=== PATIENT | male | born 1950 | race Caucasian/White ===

== ENCOUNTER 2017-02-08 13:31 | Outpatient (CLI) | payer MEDICARE, OTHER | END 2017-02-08 13:32 | disposition home or self-care (01) | LOC: DI 13:31 | PROVIDERS: ATTEND Family Medicine | DX: R07.9 Chest pain, unspecified (principal) | CPT/HCPCS: 93306 ==

== ENCOUNTER 2017-08-26 13:27 | Outpatient (CLI) | payer MEDICARE, OTHER ==
--- NOTE | 2017-08-26 14:51 | XRAY Report ---
THREE VIEW BILATERAL KNEES: 08/26/2017 CLINICAL INDICATION: Osteoarthritis. FINDINGS: AP, lateral, sunrise views of the bilateral knees demonstrate moderate bilateral osteoarthritis. A large left effusion is present, and a small right effusion is seen. There is no evidence of acute fracture. IMPRESSION: MODERATE OSTEOARTHRITIS, WITH LEFT GREATER THAN RIGHT EFFUSIONS. TD: 08/26/2017 14:50
== END 2017-08-26 13:28 | disposition home or self-care (01) ==
LOC: DI.N 13:27
PROVIDERS: ATTEND Family Medicine
DX: M17.0 Bilateral primary osteoarthritis of knee (principal)

== ENCOUNTER 2018-06-14 07:09 | Outpatient (CLI) | payer MEDICARE, OTHER ==
--- NOTE | 2018-06-14 11:26 | Ultrasound Report ---
Reason: AAA SCREEN Procedure Date: 06/14/2018 Accession Number: [id number] / [id number] Procedure: US - Aorta Screening CPT Code: FULL RESULT: EXAM: AORTIC DOPPLER ULTRASOUND EXAM DATE: 06/14/2018 07:28 AM. CLINICAL HISTORY: AAA screen. COMPARISON: None. TECHNIQUE: Real-time sonographic imaging of retroperitoneal vascular structures, including color-flow, Doppler flow and spectral analysis was performed by the lead data entry operator. Multiple sales representative education courses static images were saved for review. FINDINGS: Aorta: The abdominal aorta was adequately visualized. While the infrarenal aorta does not meet strict size criteria for aneurysm, it is atherosclerotic, visually demonstrates fusiform ectasia and demonstrates mural thrombus. Aorta: Proximal: Sagittal AP: 2.0 cm. Mid: Transverse: 1.9 x 2.1 cm. Distal: Transverse: 2.6 x 2.8 cm. Caliber WNL: Yes. Plaque visualized: Yes. Iliacs: Right Iliac: Transverse: 1.0 x 1.0 cm. Left Iliac: Transverse: 1.2 x 1.2 cm. Iliac Vessels: The visualized proximal common iliac arteries are normal in caliber. Other: None. IMPRESSION: Ectatic infrarenal abdominal aorta as described. RADIA
== END 2018-06-14 07:10 | disposition home or self-care (01) ==
LOC: DI 07:09
PROVIDERS: ATTEND Internal Medicine
DX: Z13.6 Encounter for screening for cardiovascular disorders (principal); I77.811 Abdominal aortic ectasia
CPT/HCPCS: 76706

== ENCOUNTER 2019-06-20 13:37 | Outpatient (CLI) | payer MEDICARE, OTHER ==
--- NOTE | 2019-06-21 14:28 | XRAY Report ---
Reason: PAIN IN L KNEE Procedure Date: 06/20/2019 Accession Number: [id number] / [id number] Procedure: XR - Knee 3 View LT CPT Code: Final Report FULL RESULT: EXAM: LEFT KNEE RADIOGRAPHY. EXAM DATE: 06/20/2019 02:05 PM. CLINICAL HISTORY: Pain in left knee. COMPARISON: KNEE 3 VIEW BILAT 08/26/2017 1:45 PM. TECHNIQUE: 3 views. FINDINGS: Bones: Normal. No fractures or bone lesions. Joints: Stable mild to moderate medial compartment femorotibial degenerative changes with joint space loss and subchondral sclerosis. Additional mild patellofemoral degenerative changes with osteophytosis. No effusion. No subluxations. Soft Tissues: Normal. No soft tissue swelling. IMPRESSION: Mild to moderate medial compartment femorotibial and patellofemoral degenerative changes. RADIA
== END 2019-06-20 13:38 | disposition home or self-care (01) ==
LOC: DI 13:37
PROVIDERS: ATTEND Family Medicine
DX: M17.12 Unilateral primary osteoarthritis, left knee (principal)

== ENCOUNTER 2019-08-08 07:02 | Outpatient (CLI) | payer MEDICARE, OTHER ==
--- NOTE | 2019-08-08 12:03 | MRI Report ---
Reason: MASS OF LT KNEE JOINT Procedure Date: 08/08/2019 Accession Number: [id number] / [id number] Procedure: MRI - Knee LT W/O CPT Code: Final Report FULL RESULT: EXAM: LEFT KNEE MRI WITHOUT CONTRAST EXAM DATE: 08/08/2019 08:05 AM. CLINICAL HISTORY: Mass of left knee joint. COMPARISON: KNEE 3 VIEW LT 06/20/2019 1:51 PM. TECHNIQUE: Multiplanar, multisequence T1-weighted and fluid-sensitive sequences of the knee without contrast. Other: None. FINDINGS: Bones: Reactive marrow edema posterior aspect medial femoral condyle. Reactive marrow edema medial tibial plateau. Mild spurring anterior aspect medial femoral condyle. Mild spurring medial patellar facet. 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 Medial Meniscus: Complex tear body and posterior horn medial meniscus. Lateral Meniscus: The lateral meniscus is intact. Cruciate Ligaments: The anterior and posterior cruciate ligaments are intact. Collateral Ligaments: The medial collateral and lateral collateral ligamentous structures are intact. Tendons: The quadriceps, patellar, semimembranosus, and popliteus tendons are unremarkable. Musculature: No edema or fatty atrophy. Other: Large joint fluid patellar recesses with diffuse synovitis. Thickening of the medial and superior patellar plica. Multiloculated cyst posterior intercondylar notch 1.9 x 0.7 x 1.9 cm (image 20 series 801). No loose bodies. The medial and lateral retinacula are intact. Edema superior aspect infrapatellar fat pad. Mild superior and inferior prepatellar bursitis. Anterior knee subcutaneous edema. Bejarano's cyst 2.4 x 2.2 cm in transverse dimension and 5 cm in height. IMPRESSION: 1. Severe medial tibiofemoral compartment osteoarthritis. Kellgren Augie grade 3. 2. Severe chondromalacia medial tibiofemoral compartment. 3. Complex tear body and posterior horn medial meniscus. 4. Large patellar recess joint fluid with synovitis. 5. Bejarano's cyst 2.4 x 2.2 cm in transverse dimension and 5 cm in height. 6. Severe chondromalacia medial trochlear groove. RADIA
== END 2019-08-08 07:03 | disposition home or self-care (01) ==
LOC: DI 07:02
PROVIDERS: ATTEND Orthopaedic Surgery Sports Medicine
DX: M17.12 Unilateral primary osteoarthritis, left knee (principal); M94.262 Chondromalacia, left knee; S83.232A Complex tear of medial meniscus, current injury, left knee, initial encounter; M65.9 Synovitis and tenosynovitis, unspecified; M71.22 Synovial cyst of popliteal space [Baker], left knee

== ENCOUNTER 2020-02-14 07:43 | Day surgery (SDC) | payer MEDICARE, OTHER ==
[2020-02-14] MEDS ORDERED: LACTATED RINGERS 1,000 ML IV ONE ×2 (08:15→09:23)
[2020-02-14] MEDS ORDERED: MIDAZOLAM 2 MG/2 ML VIAL IVP ONE (09:02)
[2020-02-14] MEDS ORDERED: fentaNYL 100 MCG/2 ML VIAL IVP ONE (09:02)
[2020-02-14 10:12] VITALS: BP 102/87
== END 2020-02-14 07:44 | disposition home or self-care (01) ==
LOC: SDS 07:43
PROVIDERS: ATTEND Surgery
DX: Z12.11 Encounter for screening for malignant neoplasm of colon (principal); K64.8 Other hemorrhoids; Z86.010 Personal history of colon polyps; I10 Essential (primary) hypertension
CPT/HCPCS: G0105; J7120

== ENCOUNTER 2021-06-11 11:13 | Outpatient (CLI) | payer MEDICARE, OTHER ==
[2021-06-11] MEDS ORDERED: REGADENOSON 0.4 MG/5 ML SYRINGE IVP ONE ×2 (13:31→14:51)
--- NOTE | 2021-06-11 13:48 | CARDIAC PROCEDURE NOTE ---
Stress Test Report Service Date: 06/11/21 Service Time: 12:30 Ordering Provider: Hugo Etienne MD Indication for Test: Assess exertional jaw and shoulder discomfort, presumed anginal symptoms. Significant Medical History: Mr Hbubard reports that about 3-4 years ago he suffered a major knee injury that has since markedly limited his strenuous exertion, though he remains active with basic housekeeping activities, as his has significant limiting conditions. He recalls an episode of feeling poorly while driving, near the outset of the Covid pandemic, with near syncope, attributed at an E.D. visit to dehydration. After that he was started on ongoing treatment with atorvastatin and losartan, but began to experience intermittent discomfort in the lower jaw and upper left arm, primarily with physical activity. Over the past several months these symptoms were occurring with greater frequency, with episodes lasting 15-20 minutes following activity cessation, though symptoms have not been associated with diaphoresis, increased work of breathing or lightheadedness. He saw Dr Etienne in late April, at which time the latter initiated treatment with ASA 81 mg daily and Toprol XL; since that time the patient has been feeling better, wi th a reduced burden of his presumed anginal symptoms. Unfortunately he continues smoking, typically 2-3 cigarettes daily. Cardiac Risk Factors: Positive for tobacco use (currently 2-3 cigs/day), hypertension, "diet-treated" diabetes and possible hyperlipidemia; there is a history of valve disease in patient's mother and daughter, but he is unaware of ASCVD in close family members. An additional modifying factor is untreated TELLY. Type of Stress Test: Pharmacologic Stress Test with MPI Pharmacologic Agent: Lexiscan Procedure: -Pharmacologic Stress Test- After signing informed consent, the patient underwent rest SPECT imaging and then performed a walking Lexiscan pharmacologic stress test. After obtaining resting vital signs and EKG (resting), the patient walked for 2 minutes (without elevation) at 0.8 mph ("baseline") followed by injection of Lexiscan and high dose 99Tc-Myoview with an additional 2 minutes of walking ("peak" reassesment) followed by monitoring for an additional 4 minutes ("recovery"). The test was terminated due to completing the protocol. Resting HR: 78 Baseline HR: 102 Peak HR: 118 Normal HR response. Resting BP: 168/86 Baseline BP: 178/79 Peak BP: 190/70 Hypertensive at rest with normal BP response to Lexiscan in addition to continued slow walking. Rhythm during testing: Sinus rhythm throughout, with frequent isolated PACs (in bigeminal or trigeminal pattern at times) and very rare isolated PVCs. Symptoms: He reported very minor (but typical for him) jaw pain about 1 minute after Lexiscan injection. EKG at rest showed normal sinus rhythm with with bifascicular block (LAFB and RBBB) and isolated PACs. EKG at peak stress showed no ischemia by EKG criteria. In Recovery HR and BP returned toward resting levels (101 and 171/81 at 4:00. Nuclear imaging was performed at rest and with stress. The images are reported separately. IJoel MD, was present throughout this walking Lexiscan stress study and supervised it in its entirety. Summary: 1) Abnormal resting EKG. 2) Adequate stress was likely achieved. 3) Hypertensive at rest with typical BP response to Lexiscan/continued walking. 4) No ischemic changes by EKG criteria were seen at peak stress. 5) Preliminary review of nuclear imaging suggests fixed inferior defect with reversible septal defect, consistent with inducible ischemia. Formal review by radiologist includes gated analysis showing normal left ventricuar size and systolic function, with SPECT analysis interpreted as showing fixed inferior defect, without inducible ischemia. CONCLUSIONS: 1) Clinically positive study with recreation of typical mild anginal symptoms with walking Lexiscan stress, though not associated with ischemic EKG changes. 2) Nuclear imaging with clear evidence of fixed inferior defect, likely due to prior infarct, with possible inducible septal ischemia. 3) Patient was counselled before and after the study regarding the importance of complete tobacco smoking cessation. 4) Given symptom reduction following Toprol initiation it may be reasonable to try a dose increase; if symptoms fully controlled this may be sufficient. If symptoms persist formal Cardiology evaluation and consideration of cardiac catheterization may be warranted.
--- NOTE | 2021-06-11 16:38 | Nuclear Medicine Report ---
PROCEDURE: Rest and exercise myocardial perfusion SPECT with gated imaging and ejection fraction INDICATIONS: CHEST PAIN/ LEXISCAN RADIOPHARMACEUTICAL: 13.5 mCi Tc-99m Myoview IV at rest and 40.1 mCi Tc-99m Myoview IV at peak exerc ise. [id number] was performed. TECHNIQUE: Radiopharmaceutical was injected at peak stress test, and also at rest. SPECT images wer e obtained. SPECT myocardial perfusion images were displayed in short axis, horizontal long axis, an d vertical long axis views. Gated images were reviewed using [employer] software. COMPARISON: None available. FINDINGS: Raw data: There is good myocardial labeling by radiotracer. No significant motion artifacts. Lung- to-heart ratio is 0.37 (normal is less than 0.46 for tetrafosmin tracer). Left ventricle function: Gated images demonstrate normal left ventricle wall thickening. No segment al wall motion abnormality. No transient ischemic dilation; TID is 0.88 (normal less than 1.30). Th e left ventricle resting end-diastolic volume is 69 mL. Left ventricle stress ejection fraction is 6 7%; normal values are above 45%. Myocardial perfusion: There is a small, fixed perfusion defect involving the proximal inferoseptal wa ll. The fixed perfusion defect involving the inferoseptal wall does not normalize in the prone positi on and is compatible with a small area of prior infarction. No reversible perfusion defects identifie d. IMPRESSION: 1. Abnormal myocardial perfusion study demonstrating a small fixed perfusion defect in the inferosept al wall with area of prior infarction. No reversible ischemia identified. 2. Normal left ventricular function with no segmental wall motion abnormalities and normal stress LVE F of 67%. PQRS ATTESTATIONS: Measure 322 - Is this imaging test primarily performed on a low-risk surgery patient for preoperative evaluation within 30 days preceding their low-risk non-cardiac surgery? Low-risk surgery is defined as cardiac or myocardial infarction less than 1%, including (but not limited to) endoscopic pr ocedures, superficial procedures, cataract surgery, and excisional breast surgery: Answer: No Measure 323 - Is this imaging test performed primarily for the monitoring of an asymptomatic patient who had percutaneous coronary intervention on the visit date or within 2 years of the visit date? An swer: No Measure 324 - Is this imaging test performed primarily for the initial detection and risk assessment on an asymptomatic, low coronary heart disease patient? Low CHD risk definition = clinicians should consider the maximum number of available patient factors used to estimate risk based on [place] (A TP III criteria), typically age, gender, diabetes, smoking status, and use of blood pressure medicati on, and integrate age appropriate estimates for missing elements, such as LDL or standard blood press ure. Answer: No Reviewed by: Jaylene Ureña MD, PhD on 06/11/2021 4:37 PM PST Approved by: Jaylene Urñea MD, PhD on 06/11/2021 4:37 PM PST Station ID: [id number]
== END 2021-06-11 11:14 | disposition home or self-care (01) ==
LOC: DI 11:13
PROVIDERS: ATTEND Internal Medicine
DX: R94.39 Abnormal result of other cardiovascular function study (principal); R07.9 Chest pain, unspecified; I10 Essential (primary) hypertension; R94.31 Abnormal electrocardiogram [ECG] [EKG]; F17.210 Nicotine dependence, cigarettes, uncomplicated; E11.9 Type 2 diabetes mellitus without complications; G47.33 Obstructive sleep apnea (adult) (pediatric)
CPT/HCPCS: 78452; 93016; 93017; 93018; A9500; J2785

== ENCOUNTER 2023-12-07 09:31 | Outpatient (CLI) | payer MEDICARE, OTHER ==
--- NOTE | 2023-12-07 11:16 | XRAY Report ---
PROCEDURE: Lumbar Spine 2-3V INDICATIONS: PAIN TECHNIQUE: 3 views of the lumbar spine were acquired. COMPARISON: None. FINDINGS: Surgical change: None. Bones: 5 [id number]-[id number] vertebrae are present. Grade 1-2 anterolisthesis of L4 over L5 with probabl e pars defect which is poorly discernible. Anterior compression deformity of L1 with approximately 10 % height loss anteriorly of unknown chronicity. Degenerative disc disease especially severe at L5-S1. Soft tissues: Overlying bowel gas pattern is normal. . IMPRESSION: 1. Anterior compression deformity of L1 with approximately 10% height loss anteriorly of unknown aircraft fueler nicity. 2. L4 spondylolisthesis, spondylolysis as noted above Reviewed by: Giancarlo Ballesteros MD on 12/07/2023 11:14 AM PDT Approved by: Giancarlo Ballesteros MD on 12/07/2023 11:14 AM PDT Station ID: [id number]
== END 2023-12-07 09:32 | disposition home or self-care (01) ==
LOC: DI.N 09:31
PROVIDERS: ATTEND Internal Medicine
DX: M51.37 Other intervertebral disc degeneration, lumbosacral region (principal); M47.816 Spondylosis without myelopathy or radiculopathy, lumbar region; M48.56XA Collapsed vertebra, not elsewhere classified, lumbar region, initial encounter for fracture; M43.16 Spondylolisthesis, lumbar region